=== PATIENT | male | born 1975 | race Caucasian/White ===

== ENCOUNTER 2023-05-01 11:01 | Day surgery (SDC) | payer BC ==
[2023-04-27 14:29] VITALS: BMI 31.8
[2023-05-01 13:45] VITALS: TEMP 97
[2023-05-01 13:46] VITALS: RESP 18
[2023-05-01 13:48] VITALS: BP 132/81; PULSE 89
== END 2023-05-01 13:59 | disposition home or self-care (01) ==
LOC: FASU-ENDO 11:01
PROVIDERS: ATTEND Internal Medicine Gastroenterology
PROC: 0DBP8ZX Excision of Rectum, Via Natural or Artificial Opening Endoscopic, Diagnostic (ICD-10-PCS; principal; 2023-05-01 13:05)
DX: Z12.11 Encounter for screening for malignant neoplasm of colon (principal)
CPT/HCPCS: 88305-TC